=== PATIENT | female | born 2005 | race Caucasian/White ===

== ENCOUNTER 2025-06-05 14:53 | Emergency (ER) | payer BC, SELFPAY ==
[2025-06-05 15:05] VITALS: BP 115/73; PULSE 77; TEMP 36.6; O2SAT 99; BMI 19.8
--- OUTSIDE RECORDS SUMMARY | 2025-06-05 15:15 | XMS_ITS | Encounter Summary ---
Author Organization [facility] Address [id number] [address] [place] [address] Care Team Providers Care Group Captain Name Role Phone Unavailable Primary Care Provider Unavailabl e Encounter Details Date Type Department Care Team (Late st Contact Info) Description 06/16/2022 Orders Only [facility] [address] [place] [phone] Lexus Moreno MD [address] [place], [place] [id number] Dizziness (Primary Dx); Tachycardia; Palpitation; Ectopic atrial rhythm Social History Tobacco Use Types Packs/Day Years Used Date Smoking Tobacco: Never Smokeless Tobacco: Never Comments Unknown Sex and Gender Information Value Date Recorded Sex Assigned at Not on file Legal Sex Female 3:26 PM EDT Gender Identity Not on file Sexual Orientation Not on file COVID-19 Exposure Response Date Recorded In the last month, have you been in contact with someone who was confirmed or suspected to have Coronavirus / COVID-19? No / Unsure 05/27/2022 9:00 AM EDT documented as of this encounter Plan of Treatment Not on file documented as of this encounter Results * Event monitor (06/25/2022) Anatomical Region Laterality Modality Chest N/A Other Lexus Moreno MD [facility] Final Result documented in this encounter Visit Diagnoses Diagnosis Dizziness- Primary Dizziness and giddiness Tachycardia Unspecified tachycardia Palpitation Palpitations Ectopic atrial rhythm documented in this encounter
--- OUTSIDE RECORDS SUMMARY | 2025-06-05 15:15 | XMS_ITS | Encounter Summary ---
Author Organization [facility] Address [id number] [address] [place] [address] Care Team Providers Care Proof Plate Maker Name Role Phone Unavailable Primary Care Provider Unavailabl e Encounter Details Date Type Department Care Team (Late st Contact Info) Description 07/14/2022 Orders Only [facility] [address] [place] [phone] Lexus Moreno MD [address] [place], [place] [id number] Dizziness; Tachycardia; Palpitation; Ectopic atrial rhythm Social History Tobacco Use Types Packs/Day Years Used Date Smoking Tobacco: Never Smokeless Tobacco: Never Comments Unknown Sex and Gender Information Value Date Recorded Sex Assigned at Not on file Legal Sex Female 3:26 PM EDT Gender Identity Not on file Sexual Orientation Not on file documented as of this encounter Plan of Treatment Not on file documented as of this encounter Procedures Procedure Name Priority Date/Time Associated Diagnosis Comments EVENT MONITOR Routine 06/25/2022 Dizziness Tachycardia Palpitation Ectopic atrial rhythm documented in this encounter Results * Event monitor (06/25/2022) Anatomical Region Laterality Modality Chest N/A Other us Lexus Moreno MD [facility] Final Result documented in this encounter Visit Diagnoses Diagnosis Dizziness Dizziness and giddiness Tachycardia Unspecified tachycardia Palpitation Palpitations Ectopic atrial rhythm documented in this encounter
--- OUTSIDE RECORDS SUMMARY | 2025-06-05 15:16 | XMS_ITS | Clinical Summary ---
Author Organization [facility] Address [address] [place] [address] Care Team Providers Care Product Assurance Engineer Name Role Phone BryceMack du Primary Care Provider Allergies No known active allergies Medications norethindrone ac-eth estradio () 1.5-30 MG-MCG tablet tabletIndications :Abnormal vaginal bleeding,Menorrha placido with irregular cycle,Oral contraception initial prescription,Amen orrhea,Polycystic bilateral ovaries Take 1 tablet by mouth in the morning. 28 tablet 12 11/09/19 24 Active Additional Information Patient not taking.Reported on 05/11/2025 ARIPiprazole (Abilify) 5 MG tabletIndications :Bipolar 1 disorder, mixed (HCC) Take 1 tablet (5 mg) by mouth Daily 30 tablet 1 01/21/20 24 Active Additional Information Patient not taking.Reported on 05/11/2025 cephalexin (Keflex) 500 MG capsuleIndication s:Puncture wound of right foot, initial encounter Take 1 capsule (500 mg) by mouth in the morning and 1 capsule (500 mg) before bedtime. Do all this for 7 days. 14 capsule 05/11/20 25 025 Active Problems Problem Noted Date Diagnosed Date Abnormal uterine bleeding 10/14/2023 Amenorrhea 10/14/2023 Bipolar affective disorder, currently manic, mod erate 10/14/2023 Constipation 10/14/2023 Contracture, left ankle 10/14/2023 Contusion of right hand 10/14/2023 Crushing injury of right hand 10/14/2023 Dysautonomia 10/14/2023 Gastroesophageal reflux disease 10/14/2023 High risk sexual behavior 10/14/2023 Excessive and frequent menstruation 10/14/2023 Menorrhagia 10/14/2023 Pain in wrist 10/14/2023 Right hand pain 10/14/2023 Seasonal allergies 10/14/2023 Sore throat 10/14/2023 Vitamin D deficiency 10/14/2023 Bipolar disorder 11/26/2022 Eating disorder 11/26/2022 Marijuana smoker, continuous 11/26/2022 POTS (postural orthostatic tachycardia syndrome) 11/26/2022 Vaping nicotine dependence, non-tobacco product 11/26/2022 Encounters Date Type Department Care Team Description 05/11/2025 1:00 PM EDT Ancillary Procedure [facility] [address] [place] [phone] Puncture wound of right foot, initial encounter 05/11/2025 12:30 PM EDT Office Visit [facility] [address] [facility] [address] [place] [address] Chelsea Lentz NP Puncture wound of right foot, initial encounter (Primary Dx) 05/11/2025 Results Follow-Up [facility] [address] [facility] [address] [place] [address] Chelsea Lentz NP 05/11/2025 Travel from Last 3 Months Immunizations Immunization Administration Dates Next Due DTP 10/30/2006,2005,2005 ,2005 DTaP 06/17/2010 HPV 9-Valent 11/18/2021,08/31/2019 Hep A, ped/adol, 2 dose 01/08/2011,06/17/2010 Hep B, Adolescent or Pediatric 2005,2004,2005 HiB, unspecified 10/30/2006,2005, 5,2005 IPV 06/17/2010 Influenza, seasonal, injectable 09/25/2009,08/24 MMR 06/17/2010,10/30/2006 Meningococcal B, Omv 11/18/2021 Meningococcal MCV4P 11/18/2021,06/22/2017 Meningococcal MPSV4 06/22/2017 Polio, Unspecified 10/30/2006,2005, 005 Tdap 05/22/2025,06/22/2017 Varicella 06/17/2010,06/22/2006 Family History Medical History Relation Name Comments No Known Problems Brother Hypertension Father Diabetes Mother Hypertension Mother Thyroid nodules Mother No Known Problems Sister Relation Name Status Comments Brother 2 brothers Father Alive Mother Alive Sister 2 sisters Social History Tobacco Use Types Packs/Day Years Used Date Smoking Tobacco: Never Smokeless Tobacco: Never Tobacco Cessation:Counseling Given: Yes Alcohol Use Standard Drinks/Week Comments Never 0 (1 standard drink = 0.6 oz pur e alcohol) caffeine intake : none Comments No Sex and Gender Information Value Date Recorded Sex Assigned at Not on file Legal Sex Female 7:07 PM EDT Gender Identity Not on file Sexual Orientation Not on file Last Filed Vital Signs Vital Sign Reading Time Taken Comments Blood Pressure 102/82 05/11/2025 12:36 PM EDT Pulse 89 05/11/2025 12:36 PM EDT Temperature 36.8 C (98.3 F) 05/11/2025 12:36 PM EDT Respiratory Rate 20 05/11/2025 12:36 PM EDT Oxygen Saturation 98% 05/11/2025 12:36 PM EDT Inhaled Oxygen Concentration - - Weight 57.6 kg (127 lb) 01/21/2024 9:48 AM EDT Height 172.7 cm (5' 8 ) 01/21/2024 9:48 AM EDT Body Mass Index 19.31 01/21/2024 9:48 AM EDT Body Mass Index Percentile 21.09% 01/21/2024 9:4 8 AM EDT Growth Chart: CDC (Girls, 2- 20 Years) Plan of Treatment Health Maintenance Due Date Last Done Comments Influenza Vaccine (#1) 2025 09/25/2009, 2008 Procedures Procedure Name Priority Date/Time Associated Diagnosis Comments XR FOOT 3+ VIEWS RIGHT STAT 05/11/2025 1:02 PM EDT Puncture wound of right foot, initial encounter from Last 3 Months Results * XR foot 3+ views right (05/11/2025 1:02 PM EDT) Anatomical Region Laterality Modality Lower Extremities, Foot Right [facility] 05/11/2025 1:04 PM EDT Impressions 05/11/2025 1:05 PM EDT No radiopaque foreign body. ELECTRONICALLY SIGNED BY: Ambrose Tan MD Narrative 05/11/2025 1:05 PM EDT EXAMINATION/TECHNIQUE: XR FOOT 3+ VIEWS RIGHT HISTORY: Stepped on glass 2 days ago. Possible residual foreign body near the MTP joints. COMPARISON: None RESULT: No radiopaque foreign body. No acute fracture. No dislocation. Joint spaces maintained. Procedure Note Ambrose Tan MD - 05/11/2025 EXAMINATION/TECHNIQUE: XR FOOT 3+ VIEWS RIGHT HISTORY: Stepped on glass 2 days ago. Possible residual foreign body nearthe MTP joints. COMPARISON: None RESULT: No radiopaque foreign body. No acute fracture. No dislocation. Jointspaces maintained. IMPRESSION: No radiopaque foreign body. ELECTRONICALLY SIGNED BY: Ambrose Tan MD Chelsea Lentz PATIENT CARE SECRETARY IMG XR PROCEDURES Final Resu lt from Last 3 Months Insurance [facility] Care Teams Product Assurance Engineer Relationship Specialty Start Date End Date Mack Dominguez DO [address] [facility] [address] [place] [address] PCP - General Family Medicine 06/22/23
--- OUTSIDE RECORDS SUMMARY | 2025-06-05 15:16 | XMS_ITS | Encounter Summary ---
Author Organization [facility] Address [id number] [address] [place] [address] Care Team Providers Care Military Cook Name Role Phone Unavailable Primary Care Provider Unavailabl e Encounter Details Date Type Department Care Team (Late st Contact Info) Description 07/28/2022 Orders Only [facility] [address] [place] [phone] Ref Prov, [place] [address] Social History Tobacco Use Types Packs/Day Years [...] Procedure Name Priority Date/Time Associated Diagnosis Comments NON [facility] Routine 07/28/2022 8:14 AM EDT documented in this encounter Visit Diagnoses Not on filedocumented in this encounter
--- OUTSIDE RECORDS SUMMARY | 2025-06-05 15:16 | XMS_ITS | Encounter Summary ---
Author Organization [facility] Address [address] [place] [address] Care Team Providers Care International Project Manager Name Role Phone Mack Dominguez DO Primary Care Provider [phone] Encounter Details Date Type Department Care Team ([facility] st Contact Info) Description 05/11/2025 Results Follow-Up [facility] [address] [facility] [address] [place] [phone] Chelsea Lentz NP [address] [place] [address] Social History Tobacco Use Types Packs/Day Years Used Date Smoking Tobacco: Never Smokeless Tobacco: Never Alcohol Use Standard Drinks/Week Comments Never 0 (1 standard drink = 0.6 oz pur e alcohol) caffeine intake : none Comments No Sex and Gender Information Value Date Recorded Sex Assigned at Not on file Legal Sex Female 7:07 PM EDT Gender Identity Not on file Sexual Orientation Not on file documented as of this encounter Miscellaneous Notes * Telephone Encounter - Chelsea Lentz NP - 05/11/2025 1:42 PM EDT Please call pt and notify her that final x ray read is negative for foreign body and/or fracture. Continue treatment plan as we discussed and follow up with PCP if not improving. Thanks. RESULT: No radiopaque foreign body. No acute fracture. No dislocation. Joint spaces maintained. IMPRESSION: No radiopaque foreign body. documented in this encounter Plan of Treatment Not on file documented as of this encounter Visit Diagnoses Not on filedocumented in this encounter Care Teams International Project Manager Relationship Specialty Start Date End Date Mack Dominguez DO [address] [facility] [address] [place] [address] PCP - General Family Medicine 06/22/23 documented as of this encounter
--- OUTSIDE RECORDS SUMMARY | 2025-06-05 15:16 | XMS_ITS | Patient Health Record ---
Author Organization [facility] Address [address] [place] [address] Care Team Providers Care Newspaper Inserter Name Role Phone Torie Rust Primary Care Provider Dr. Damien Negron Unavailable [phone] Harish Ortiz Unavailable [phone] Britntee Wolff Unavailable [phone] Allergies No Known Allergies Results Component Value Reference Range Notes JOHANNE with Reflex Reviewed date:09/12/2024 10:04:54 AM Interpretation: Performing Lab: Notes/Report: Reason for Exam Multiple joint pain Reason for Exam Malar rash JOHANNE with Reflex Negative Negative Performed at: [address] [id number] Contracting Support Specialist: Jay Krishnamurthy PhD, Phone: [phone] Complete Blood Count and Dif f Reviewed date:09/12/2024 10:04:54 AM Interpretation: Performing Lab:, [facility], [address] [place] Notes/Report: Reason for Exam Malar rash Segmented Neutrophils 28 50-70 % Band Neutrophils 12 0-5 % Lymphocytes 45 18-42 % Reactive Lymphocytes 11 0-12 % Monocytes 3 2-11 % Eosinophils 1 1-3 % Basophils 1 0-2 % Poikilocytosis Slight Anisocytosis Slight Microcytosis Slight Platelet Estimate Normal Normal White Blood Count 5.8 3.8-11.6 10*3/uL Uncorrected WBC 5.8 3.8-11.6 10*3/uL Red Blood Count 4.77 3.60-5.00 Hemoglobin 14.2 11.8-15.4 g/dL Hematocrit 41.6 34.0-46.4 % Mean Corpuscular Volume 87.2 80-100 fL Mean Corpuscular Hemoglobin 29.7 24.7-34.3 pg Mean Corpuscular HGB Conc 34.1 32.0-35.0 g/dL Red Cell Distribution Width 12.9 11.9-15.3 % Platelet Count 165 150-450 10*3/uL Mean Platelet Volume 9.3 6.3-10.7 fL Platelet Morphology Normal Normal Pathologist Slide Review Reviewed date:09/12/2024 10:04:54 AM Interpretation: Performing Lab:, [facility], [place] Notes/Report: Pathologist Slide Review Ordered Path Review Rheumatoid Factor Reviewed date:09/12/2024 10:04:54 AM Interpretation: Performing Lab:, [facility], [place] Notes/Report: Reason for Exam Multiple joint pain Reason for Exam Malar rash Rheumatoid Factor 16.4 <14.0 Performed at: [facility] [employer] [id number] Contracting Support Specialist: Jay Krishnamurthy PhD, Phone: [phone] Erythrocyte Sedimentation Ra te Reviewed date:09/12/2024 10:04:54 AM Interpretation: Performing Lab: Notes/Report: Reason for Exam Malar rash Erythrocyte Sedimentation Rate 3 0-19 Thyroid Stim Hormone w/Rflx Reviewed date:09/12/2024 10:04:54 AM Interpretation: Performing Lab: Notes/Report: Reason for Exam Malar rash Reason for Exam Fever, unspecified Thyroid Stim Hormone w/Rflx 4.00 0.45-5.33 u[i U]/mL C-Reactive Protein Reviewed date:09/12/2024 10:04:54 AM Interpretation: Performing Lab: Notes/Report: Reason for Exam Malar rash Reason for Exam Fever, unspecified C-Reactive Protein 1.7 0.0-0.5 mg/dL Complete Blood Count Auto Di ff Reviewed date:09/12/2024 10:04:54 AM Interpretation: Performing Lab:, [facility], [place] Notes/Report: Reason for Exam Malar rash White Blood Count 5.8 3.8-11.6 10*3/uL Uncorrected WBC 5.8 3.8-11.6 10*3/uL Red Blood Count 4.77 3.60-5.00 Hemoglobin 14.2 11.8-15.4 g/dL Hematocrit 41.6 34.0-46.4 % Mean Corpuscular Volume 87.2 80-100 fL Mean Corpuscular Hemoglobin 29.7 24.7-34.3 pg Mean Corpuscular HGB Conc 34.1 32.0-35.0 g/dL Red Cell Distribution Width 12.9 11.9-15.3 % Platelet Count 165 150-450 10*3/uL Mean Platelet Volume 9.3 6.3-10.7 fL Monotest Reviewed date:09/21/2024 04:51:00 PM Interpretation: Performing Lab:, [facility], [address] [place] Notes/Report: Reason for Exam Abnormal CBC Monotest Positive Negative Complete Blood Count Auto Di ff Reviewed date:09/21/2024 04:51:00 PM Interpretation: Performing Lab:, [facility], [address] [place] Notes/Report: Reason for Exam Abnormal CBC White Blood Count 4.8 3.8-11.6 10*3/uL Uncorrected WBC 4.8 3.8-11.6 10*3/uL Red Blood Count 4.59 3.60-5.00 10*6/uL Hemoglobin 13.2 11.8-15.4 g/dL Hematocrit 38.7 34.0-46.4 % Mean Corpuscular Volume 84.2 80-100 fL Mean Corpuscular Hemoglobin 28.7 24.7-34.3 pg Mean Corpuscular HGB Conc 34.1 32.0-35.0 g/dL Red Cell Distribution Width 12.6 11.9-15.3 % Platelet Count 188 150-450 10*3/uL Mean Platelet Volume 8.4 6.3-10.7 fL Neutrophils % (Auto) 55.5 . % Lymphocytes % (Auto) 34.8 . % Monocytes % (Auto) 7.8 . % Eosinophils % (Auto) 1.4 . % Basophils % (Auto) 0.5 . % NRBC% 0.2 0-0.5 /100{WBC} Neutrophils # (Auto) 2.7 1.8-7.7 10*3/uL Lymphocytes # (Auto) 1.7 1.00-4.8 10*3/uL Monocytes # (Auto) 0.4 0.0-0.8 10*3/uL Eosinophils # (Auto) 0.1 0.0-0.45 10*3/uL Basophils # (Auto) 0.0 0.0-0.2 10*3/uL Complete Blood Count Auto Di ff Reviewed date:09/12/2024 10:04:54 AM Interpretation: Performing Lab:, [facility], [address] [place] Notes/Report: Reason for Exam Malar rash White Blood Count 5.8 3.8-11.6 10*3/uL Uncorrected WBC 5.8 3.8-11.6 10*3/uL Red Blood Count 4.77 3.60-5.00 Hemoglobin 14.2 11.8-15.4 g/dL Hematocrit 41.6 34.0-46.4 % Mean Corpuscular Volume 87.2 80-100 fL Mean Corpuscular Hemoglobin 29.7 24.7-34.3 pg Mean Corpuscular HGB Conc 34.1 32.0-35.0 g/dL Red Cell Distribution Width 12.9 11.9-15.3 % Platelet Count 165 150-450 10*3/uL Mean Platelet Volume 9.3 6.3-10.7 fL Comprehensive Metabolic Pane l Reviewed date:09/12/2024 10:04:54 AM Interpretation: Performing Lab:, [facility], [address] [place] Notes/Report: Reason for Exam Malar rash Reason for Exam Fever, unspecified Glucose 102 70-100 mg/dL Random Glucose Reference Range is dependent on time and content of last meal. Glucose of more than 200 mg/dL in a nonstressed, ambulatory subject supports the diagnosis of Diabetes Mellitus. ADA recommended reference range Blood Urea Nitrogen 9 7-25 mg/dL Creatinine 0.75 0.60-1.20 mg/dL Sodium 137 136-145 mmol/L Potassium 4.4 3.5-5.1 mmol/L Chloride 106 98-107 mmol/L Carbon Dioxide 23.6 21.0-31.0 mmol/L Calcium 9.5 8.6-10.3 mg/dL Total Protein 7.0 6.4-8.9 g/dL Albumin Level 4.4 3.5-5.7 g/dL Globulin 2.6 Albumin/Globulin Ratio 1.7 Bilirubin,Total 0.4 0.3-1.0 mg/dL Aspartate Amino Transferase 34 13-39 U/L Alanine Aminotransferase 20 7-52 U/L Alkaline Phosphatase 62 34-104 U/L Estimated GFR > 60.0 Anion Gap 11.8 6.0-15.0 JOHANNE with Reflex Reviewed date:09/01/2024 11:00:47 PM Interpretation:see attached Performing Lab: Notes/Report: see attached Erythrocyte Sedimentation Ra te Reviewed date:09/01/2024 04:57:48 PM Interpretation:see attached Performing Lab: Notes/Report: see attached Complete Blood Count Auto Di ff Reviewed date:09/01/2024 11:00:47 PM Interpretation:see attached Performing Lab: Notes/Report: see attached C-Reactive Protein Reviewed date:09/01/2024 04:38:15 PM Interpretation:see attached Performing Lab: Notes/Report: see attached Comprehensive Metabolic Pane l Reviewed date:09/01/2024 01:58:41 PM Interpretation:see attached Performing Lab: Notes/Report: see attached Reason For Referral Reason 09/20 referral updat e attached. Pt. scheduled 10/11/[address] Alvin Garrett *FAXED 09/14 Positive RF, multiple joint pain. Please evaluate and treat. Diagnosis 1 Rheumatoid factor po sitive (R76.8) Referral Organization [facility] Referring Provider First Name Torie Referring Provider Last Name Barrera Referring Provider Speciality Nurse Prac titioner Referred Provider Specialty Rheumatology General Notes Maxine Pereira 2023 08:17:58 AM >RECEIVED A NOTE THAT STATES CANNOT BE SEEN DUE TO HAVING [facility] MEDICAID. PATIENT DOES NOT HAVE THAT INSURANCE. SHE HAS ANTHEM., Maxine Pereira 09/14/2024 02:49:38 PM >ALFREDO Paez (Dr. Jackson) [phone] Referral Priority Routine Referral Appointment Date 10/11/2024 Medications Medication SIG (Take, Route, Frequency, Duration) Notes Start Date End Date Status Doxycycline Monohydrate 100 MG 1 capsule Orally twice a day (bid); Duration: 10 day(s) Active Ondansetron HCl 8 MG 1 tablet as needed Orally Once a day; Duration: 14 days 03/11/2022 Active Immunizations Vaccine Route Administration Date Status Comme nts HPV IM Intramuscular 11/18/2021 Administered Meningococcal (MENACTRA) IM Intramuscular 11/18/2021 Admin istered MENINGOCOCCAL B IM Intramuscular 11/18/2021 Administered Social History Sex Assigned At : Social History Observation Description Sex Assigned At Female Sexual Hx: Question Answer Notes Had sex in the last 12 months (vaginal, oral, or anal)? Yes with Men only Use protection? Yes How often? All of the time Prevention Strategies discussed: Condoms Have you ever had an STD? Yes Other? Yes AUDIT-C (Standard) Question Answer Notes Did you have a drink containing alcohol in the p ast year? No Points 0 Interpretation Negative Tobacco Control (Standard) Question Answer Notes Additional Findings: Tobacco user e-cigarette Section Notes: uses vape pen uses vape pen uses vape pen uses vape pen uses vape pen uses vape pen uses vape pen uses vape pen uses vape pen uses vape pen uses vape pen uses vape pen uses vape pen uses vape pen uses vape pen uses vape pen uses vape pen uses vape pen uses vape pen uses vape pen uses vape pen uses vape pen Problems Problem Type SNOMED Code ICD Code Onset Dates Problem Status W/U Status Risk Notes Problem Dysuria (06619994) Dysuria (R30.0) Active confi rmed Problem Seasonal allergy (663444364) Seasonal allergies (J30.2) Active confirmed Problem Gastroesophageal reflux disease (270960994) GERD (gastroesophageal reflux disease) (K21.9) Active confirmed Problem Vitamin D deficiency (25464913) Hypovitaminosis D (E55.9) Active confirmed Problem Amenorrhea (79671875) Amenorrhea (N91.2) Active confirmed Problem Sore throat (328952666) Sore throat (J02.9) Active confirmed Problem High risk sexual behavior (857337675) Unprotected sex (Z72.51) Active confirmed Problem Bipolar affective disorder, currently manic, moderate (464630021) Bipolar 1 disorder with moderate blake (F31.12) Active confirmed Problem Dysautonomia (58345947) Dysautonomia (G90.1) Active confirmed Vital Signs Heart Rate 61 /min 08/25/2024 Temperature 98.6 degrees Fahrenheit 08/25/2024 Respiratory Rate 20 /min 08/25/2024 Blood pressure diastolic 69 mm Hg 08/25/2024 Oximetry 94 % 08/25/2024 Height 68.5 in 08/25/2024 BMI Percentile 8.67 08/25/2024 Blood pressure systolic 105 mm Hg 08/25/2024 Weight 122 lbs 08/25/2024 BMI 18.28 kg/m2 08/25/2024 Encounters Encounter Location Date Provider Diagnosis [facility] [address] [address] 08/26/2024 Torie Interianojosephbuddy [facility] [address] [place] [address] 08/31/2024 Torie Interianojosephbuddy [place] [address] [place] [address] 09/01/2024 Torie Interianojosephbuddy Rheumatoid factor positive R76.8 [facility] [address] [address] 09/06/2024 Torie Interianojosephbuddy Abnormal CBC R79.89 [facility] [address] [place] [address] 09/21/2024 Torie leeGregoriabuddy [place] [address] [address] 09/01/2024 Torie leeGregoriabuddy [place] [address] [place] [address] 09/05/2024 Torie Interianojosephbuddy Nausea and vomiting, unspecified vomiting type R11.2 [facility] [address] [place] [address] 08/25/2024 Torie Rust Malar rash R21 ; Multiple joint pain M25.50 ; Dysautonomia G90.1 ; Fever, unspecified R50.9 and Unintentional weight loss R63.4 [facility] [address] [place] [address] 10/13/2024 Damien Negron Encounter for dental examination and cleaning with abnormal findings Z01.21 ; Other dental procedure status Z98.818 ; Disturbances in tooth eruption K00.6 and Dental caries on pit and fissure surface penetrating into dentin K02.52 [facility] [address] [place] [address] 01/18/2025 Brittnee Wolff Acute gingivitis, plaque induced K05.00 [facility] [address] [place] [address] 12/30/2024 Damien Negron Dental caries on pit and fissure surface penetrating into dentin K02.52 [facility] [address] [place] [address] 01/11/2025 Damien Jamil Dental caries on pit and fissure surface penetrating into dentin K02.52 Assessments Encounter Date Diagnosis (ICD Code) Assessment Notes Treatment Notes Treatment Clinical Notes Section Notes 08/25/2024 Malar rash (ICD-10 - R21) Will get labwork today, will contact patient with results. 09/01/2024 Rheumatoid factor positive (ICD-10 - R76.8) 09/06/2024 Abnormal CBC (ICD-10 - R79.89) 10/13/2024 Encounter for dental examination and cleaning with abnormal findings (ICD-10 - Z01.21) 09/05/2024 Nausea and vomiting, unspecified vomiting type (ICD-10 - R11.2) 12/30/2024 Dental caries on pit and fissure surface penetrating into dentin (ICD-10 - K02.52) 01/11/2025 Dental caries on pit and fissure surface penetrating into dentin (ICD-10 - K02.52) 01/18/2025 Acute gingivitis, plaque induced (ICD-10 - K05.00) 08/25/2024 Multiple joint pain (ICD-10 - M25.50) Will get labwork today, will contact patient with results. 08/25/2024 Dysautonomia (ICD-10 - G90.1) Will get labwork today, will contact patient with results. 10/13/2024 Other dental procedure status (ICD-10 - Z98.818) 10/13/2024 Disturbances in tooth eruption (ICD-10 - K00.6) 08/25/2024 Fever, unspecified (ICD-10 - R50.9) Will get labwork today, will contact patient with results. 08/25/2024 Unintentional weight loss (ICD-10 - R63.4) Will get labwork today, will contact patient with results. 10/13/2024 Dental caries on pit and fissure surface penetrating into dentin (ICD-10 - K02.52) 08/25/2024 Other Body Mass Index : Care Instructions material was published Plan Of Treatment Pending Test Test Name Order Date Thyroid Stim Hormone w/Rflx 08/25/2024 Rheumatoid Factor 08/25/2024 Next Appt Details Provider Name:Brittnee Wolff , 07/24/2025 09:30:00 AM, [address], [place], [address], Insurance Providers Payer Name Payer Address Payer Phone Subscriber Number Group Number Insured Name Patient Relationship to Insured Coverage Start Date Coverage End Date ANTHEM Primary [address] [place] [address] [id number] TERESA GUO Parent 4 [employer] [place] Medicaid [address] [place] [address] [id number] GLENDYVIDA Self - patient is the insured 3 [facility] [address] [place] [address] [id number] GLENDY VIDA Self - patient is the insured 3 [employer] [address] [address] [place] [address] [id number] ERICMIRATABITHA TERESA Parent 0 1 zDENTAL DQ [facility] CHP [place]-termed 22 [address] [place] [address] [id number] [place] JOSE LUIS PIKESAMI Self - patient is the insured 1 3 zDental MEDICAID CF after [facility] CHP-terme d 22 [address] [place] [address] [id number] VIDA PIKE Self - patient is the insured 1 3 [facility] E CHP-terme d 22 [address] [place] [address] [id number] VIDA PIKE Self - patient is the insured 1 3 zMEDICAID MERGED WITH [facility] after [facility] CHP-terme d 22 [address] [place] [address] [id number] VIDA PIKE Self - patient is the insured 1 3 ANTHEM Primary [address] [place] [address] [id number] VIDA PIKE Self - patient is the insured 1 3 zDental [employer] [place] Medicaid [address] [place] [address] [id number] VIDA PIKE Self - patient is the insured 3 4 Dental Wrap [facility] [address] [place] [address] [id number] VIDA PIKE Self - patient is the insured 3 4 DENTAL ANTHEM [address] [place] [address] [id number] VIDA PIKE Self - patient is the insured 3 Medications Administered Medication Instructions Date of Administration Dosage Notes Rocephin 500 mg 10/01/2023 500 mg Rocephin 500 mg 10/01/2023 500 mg Medical (General) History Medical History History ICD Code Depression F32.9 Esophageal reflux Disautonomia Surgical History Surgery Date(Month/Year) tonsillectomy oral surgery Hospitalization History Reason Date(Month/Year) [facility]
--- OUTSIDE RECORDS SUMMARY | 2025-06-05 15:16 | XMS_ITS | Clinical Summary ---
Author Organization [facility] Address [address] [place], [place] [id number] Care Team Providers Care Sizing Sponger Name Role Phone Torie Leal CNP Unavailable [phone] Allergies No known active allergies Medications glycopyrrolate (ROBINUL ORAL) Take by mouth. Active Lactobacillus acidophilus (PROBIOTIC ORAL) Take by mouth once daily. Active Active Problems Problem Noted Date Diagnosed Date POTS (postural orthostatic tachycardia syndrome) 11/26/2022 Eating disorder 11/26/2022 Bipolar disorder 11/26/2022 Vaping nicotine dependence, non-tobacco product 11/26/2022 Marijuana smoker, continuous 11/26/2022 Immunizations Immunization Administration Dates Next Due Haemophilus influenzae b (Hi b) vaccine, unspecified formulation 10/30/2006,2005,2005,09/11 diphtheria tetanus pertussis (DTP) vaccine 10/30/2006,2005,2005,09/11 diphtheria tetanus pertussis (DTaP) vaccine, pediatric (INFANRIX) 06/17/2010 hepatitis A (HepA) vaccine, 2-dose series, ped/adol (HAVRIX-PEDS, VAQTA-PEDS) 01/08/2011,06/17/2010 hepatitis B (HepB) vaccine, 3-dose series, age 0 yr - 19 yr (ENGERIX B-PEDS, RECOMBIVAX HB-PEDS) 2005,2005,2005 human papillomavirus (HPV9) vaccine, 9 valent (GARDASIL 9) 11/18/2021,08/31/2019 influenza (IIV3) vaccine, tr ivalent (AFLURIA, FLULAVAL, FLUVIRIN, FLUZONE) 09/25/2009,08/24/2009 measles mumps rubella (MMR) vaccine (M-M-R II, PRIORIX) 06/17/2010,10/30/2006 meningococcal (MPSV4) vaccin e, quadrivalent (MENOMUNE) 06/22/2017 meningococcal (MenACWY-D) va ccine, quadrivalent (MENACTRA) 11/18/2021 meningococcal B (MenB-4C) va ccine (BEXSERO) 11/18/2021 poliovirus (IPV) vaccine, in activated (IPOL) 06/17/2010 poliovirus vaccine, unspecif ied formulation 10/30/2006,2005,2005 tetanus diphtheria pertussis (Tdap) vaccine, age 7+ yr (ADACEL, BOOSTRIX) 06/22/2017 varicella (JERSEY) vaccine (VARIVAX) 06/17/2010, Social History Tobacco Use Types Packs/Day Years Used Date Smoking Tobacco: Every Day Smokeless Tobacco: Never Tobacco Cessation:Ready to Q uit: Not Asked Comments:[facility] Area Deprivation Index Answer Date Lew rded National Score (1-100), lower number is lower ri sk 64 04/30/2023 State Score (1-10), lower number is lower risk 4 04/30/2023 Data from: https://www.neighborhoodatlas.medicine.[facility].edu/. Last address used for calculation [address] [place] [address] 04/30/2023 Comments No Sex and Gender Information Value Date Recorded Sex Assigned at Not on file Legal Sex Female 10:19 AM EST Gender Identity Not on file Sexual Orientation Not on file Last Filed Vital Signs Vital Sign Reading Time Taken Comments Blood Pressure 102/57 10/11/2024 2:45 PM EST Pulse 88 10/11/2024 2:45 PM EST Temperature 37 C (98.6 F) 10/11/2024 2:45 PM EST Respiratory Rate - - Oxygen Saturation 99% 01/07/2023 10:50 AM EST Inhaled Oxygen Concentration - - Weight 57.2 kg (126 lb 1.7 oz) 10/11/2024 2:45 P M EST Height 172.7 cm (5' 8 ) 10/11/2024 2:45 PM EST Body Mass Index 19.17 10/11/2024 2:45 PM EST Plan of Treatment Health Maintenance Due Date Last Done Comments Peds To Adult Transition Ini tial Discussion 2017 Peds To Adult Transition Brenna ual Assessment 2019 Meningococcal B Vaccine (2 o f 2 - Bexsero SCDM 2-dose series) 05/18/2022 11/18/2021 Anxiety Screening 2023 Chlamydia Screening (18-24) 2023 Depression Screening 2023 GC (Gonorrhea) Screening (18-24) 2023 HIV Screening 2023 Hepatitis C Screening 2023 Pneumococcal Vaccine (1 of 2 - PCV) 2024 Influenza Vaccine (#1) 2025 09/25/2009, 2008 DTaP,Tdap,Td Vaccine (7 - Td or Tdap) 06/22/2027 06/22/2017, 06/17/2010, 10/30/2006, Additional history exists Hepatitis B Vaccine Completed 2005, 2005, 2005 HPV Vaccine Completed 11/18/2021, 08/31/2019 Meningococcal Conjugate Vaccine Completed , 06/22/2017 Insurance hovelstay PPO Care Teams Sizing Sponger Relationship Specialty Start Date End Date Torie Leal, MILITARY LOGISTICS SPECIALIST [address] [place] [address] Referring Family Medicine 09/20/24
--- OUTSIDE RECORDS SUMMARY | 2025-06-05 15:16 | XMS_ITS | Encounter Summary ---
Author Organization [facility] Address [address] [place] [address] Care Team Providers Care Retail Warehouse Associate Name Role Phone Mack Dominguez DO Primary Care Provider [phone] Encounter Details Date Type Department Care Team ([facility] st Contact Info) Description 07/15/2023 Abstract [facility] [address] [facility] [address] [place] [address] Aline Mancia DO [address] [id number] Social History Tobacco Use Types Packs/Day Years [...] on filedocumented in this encounter Care Teams Retail Warehouse Associate Relationship Specialty Start Date End Date Mack Dominguez DO [address] [facility] [address] [place] [address] PCP - General Family Medicine 06/22/23 documented as of this encounter
--- OUTSIDE RECORDS SUMMARY | 2025-06-05 15:16 | XMS_ITS | Clinical Summary ---
Author Organization [facility] Address [id number] [address] [place] [address] Care Team Providers Care Phd Internship Name Role Phone Unavailable Primary Care Provider Unavailabl e Allergies No known active allergies Medications azithromycin (ZITHROMAX) 500 mg tablet take 2 tablets by mouth ONCE 03/12/2022 Active ondansetron (ZOFRAN) 8 mg tablet Take 1 tablet by mouth as needed. 03/11/2022 Active Active Problems No known active problems Family History Medical History Relation Name Comments Hypertension Father High Cholesterol Maternal Grandmother Hypertension Maternal Grandmother Thyroid Issues Maternal Grandmother Hypertension Mother Thyroid Issues Mother Thyroid Issues Paternal Grandfather High Cholesterol Paternal Grandmother Thyroid Issues Paternal Grandmother Arrhythmia Neg Hx Asthma Neg Hx Clotting disorder Neg Hx Diabetes Neg Hx Heart attack Neg Hx Heart defect Neg Hx Seizures Neg Hx Stroke Neg Hx Sudden Neg Hx Relation Name Status Comments Father Maternal Grandmother Mother Paternal Grandfather Paternal Grandmother Social History Tobacco Use Types Packs/Day Years Used Date Smoking Tobacco: Never Smokeless Tobacco: Never Comments Unknown Sex and Gender Information Value Date Recorded Sex Assigned at Not on file Legal Sex Female 3:26 PM EDT Gender Identity Not on file Sexual Orientation Not on file Last Filed Vital Signs Vital Sign Reading Time Taken Comments Blood Pressure 126/77 05/27/2022 9:21 AM EDT Pulse 90 05/27/2022 9:21 AM EDT Temperature - - Respiratory Rate - - Oxygen Saturation - - Inhaled Oxygen Concentration - - Weight 60.1 kg (132 lb 9.6 oz) 05/27/2022 9:18 A M EDT Height 174.6 cm (5' 8.74 ) 05/27/2022 9:18 AM ED T Body Mass Index 19.73 05/27/2022 9:18 AM EDT Body Mass Index Percentile 34.31% 05/27/2022 9:1 8 AM EDT Growth Chart: [facility] (Girls, 2- 20 Years) Plan of Treatment Health Maintenance Due Date Last Done Comments Depression Screening 2017 Tobacco Screening 2017 Adult BMI Screening 2023 05/27/2022 Influenza Vaccine 07/03/2025 09/25/2009, 08/24/2009 DTaP,Tdap and Td Vaccines (7 - Td or Tdap) 06/22/2027 06/22/2017, 06/17/2010, 10/30/2006, Additional history exists Medical Devices Not on file Insurance [facility] MEDICAID [facility] MEDICAID
--- NOTE | 2025-06-05 15:18 | US_ITS ---
The [address] [address] Patient Name: VIDA PIKE MRN: [id number] date: 2005 Sex: F Assigned Patient Location: ED.MAIN Current Patient Location: ED.MAIN Accession/Order Number: [id number] Exam Date: 06/05/2025 16:38 Report Date: 06/05/2025 16:41 At the request of: MARCUS GUERIN MD Procedure: US pelvis transvaginal EXAMINATION TYPE: US pelvis transvaginal Grayscale, color scale Doppler, vascular duplex analysis of the bilateral ovaries DATE OF EXAM ORDERED: 06/05/2025 3:45 PM HISTORY: right pelvic pain ( PCOD hx ), complex cyst versus mass seen on prior CT COMPARISON: NONE TECHNIQUE: Realtime Transvaginal and Transabdominal imaging was performed. Transvaginal imaging was utilized to better evaluate the ovaries and the endometrial stripe. Grayscale, color scale Doppler, vascular duplex analysis of the bilateral ovaries was performed to assess blood flow. FINDINGS: The uterus measures 9.1 x 4.4 x 5.0 cm. The uterus is normal in echogenicity. Endometrium: Normal thickness and appearance. The endometrium measures 9 mm in thickness Ovaries: There is a complex appearing cystic structure with internal debris in the right ovary measuring 5.0 x 3.6 x 4.8 cm in greatest dimension. This may represent a large hemorrhagic cyst. Right Ovary measurements: 7.0 x 4.4 x 5.9 cm Left Ovary measurements: 5.6 x 2.6 x 2.4 cm No abnormal adnexal mass is seen. No free fluid in the pelvic cul-de-sac. Vascular duplex analysis of the bilateral ovaries demonstrates normal blood flow without evidence of ovarian ischemia. US/US pelvis transvaginal IMPRESSION: There is a complex appearing cystic structure with internal debris in the right ovary measuring 5.0 x 3.6 x 4.8 cm in greatest dimension. This may represent a large hemorrhagic cyst. Short-term interval ultrasound follow-up is recommended to assess resolution. No evidence of ovarian ischemia. Impression dictated by: Julio Garrison M.D. 06/05/2025 4:41 PM Dictation Location: [place] [address] Electronically authenticated by: [id number] Y Date: 06/05/2025 16:41
--- NOTE | 2025-06-05 15:30 | ED_ITS ---
HPI - Abdominal Pain General Chief Complaint: Abdominal Pain Stated Complaint: LOWER RIGHT SIDED ABDOMINAL PAIN Time Seen by Provider: 06/05/25 14:56 History of Present Illness HPI narrative: Patient is 19 years old female presented to the ER with a right lower quadrant pain that she noticed yesterday evening, that the pain is continuous dull ache like that can increase sometimes with certain movement, she did had some mild nausea and she denies any fever chills or any other concern No changes in bowel movement the patient had no similar presentation before she mentioned that she have a history of polycystic ovarian disease and she thinks maybe this is the reason for her pain Last menstruation was at the beginning of April and that she had it for 7 days and she mentioned that she usually does not have a regular menstruation Patient denies any burning with urination or any vaginal discharge or any risk for infections Related Data Previous Rx's ?Medication ?Instructions ?Recorded ibuprofen 600 mg tablet 600 mg PO Q8H PRN pain #20 t abs 06/05/25 Allergies Allergy/AdvReac Type Severity Reaction Status Date / Time No Known Drug Allergies Allergy Verified 06/05/25 15:05 Review of Systems ROS Status of ROS 10 or more systems reviewed and unremark able except as noted in history and below [facility] Medical History (Updated 06/05/25 @ 17:31 by Liz Hannah MD) Cystic disease of ovaries ?N83.209 - Unspecified ovarian cyst, unspecified side (ICD-10) Social History Little interest or pleasure in doing things: not at all Feeling down, depressed, or hopeless: not at all Exam Narrative Exam Narrative: Nurses notes and vital signs reviewed and patient is not hypoxic. General: Well-appearing and in no apparent distress. Skin: Warm, dry, no pallor noted. No rash. Head: Normocephalic, atraumatic. Neck: Supple, non-tender. Cardiovascular: Regular Rate and Rhythm without murmur, gallop or rub. Respiratory: No accessory muscle use or respiratory distress. Lungs are clear to auscultation, no wheezing, rales or rhonchi Chest Wall: no tenderness Back: No midline thoracic or lumbar vertebral tenderness. No CVA tenderness Musculoskeletal: normal ROM, no calf or popliteal tenderness, no lower extremity edema/swelling GI: Abdomen is soft, non-distended. Right lower quadrant tenderness noted with positive McBurney. Neurological: A&O x4. No cranial nerve dysfunction observed. Constitutional Vital Signs, click to edit/add: Last Vital Signs Temp 98 F 06/05/25 15:05 Pulse 72 06/05/25 16:12 Resp 16 06/05/25 16:12 BP 121/73 06/05/25 16:12 Pulse Ox 100 06/05/25 16:12 O2 Del Method Room Air 06/05/25 15:05 Course Vital Signs Vital signs: Vital Signs Temperature 98 F 06/05/25 15:05 Pulse Rate 77 06/05/25 15:05 Respiratory Rate 16 06/05/25 15:05 Blood Pressure 115/73 06/05/25 15:05 Pulse Oximetry 99 06/05/25 15:05 Oxygen Delivery Method Room Air 06/05/25 15:05 Temperature 98 F 06/05/25 15:05 Pulse Rate 72 06/05/25 16:12 Respiratory Rate 16 06/05/25 16:12 Blood Pressure 121/73 06/05/25 16:12 Pulse Oximetry 100 06/05/25 16:12 Oxygen Delivery Method Room Air 06/05/25 15:05 MDM - Abdominal Pain MDM Narrative Medical decision making narrative: CBC and chemistry showed no acute pathology and negative as well CT abdomen pelvis showed that the patient have a cyst on the right side that is 6 cm and it was confirmed with the ultrasound I did speak with the [facility] doctor on-call Dr. Carmen and she recommended the patient to follow-up with Dr. Kenney outpatient within few days The patient was instructed about the importance of coming back in case of any consistent pain in the right side and I explained to her the importance of monitoring symptoms specially that I explained to her the importance of the pain getting worse to come back to the ER because that would put her at risk of ovarian torsion Patient was discharged home with high-dose ibuprofen The patient is to follow up with primary care physician in next 2-3 days or to return to the emergency department should any of the signs or symptoms worsen or new symptoms develop. The patient agrees with the following Diagnosis and Treatment plan and the patient will be discharged home. Lab Data Labs: Lab Results 06/05/25 06/05/25 Range/Units 15:00 15:27 WBC 8.0 (4.0-11.0) 10^3/uL RBC 4.61 (4.20-5.40) 10^6/uL Hgb 13.7 (12.0-16.0) g/dL Hct 39.4 (36.0-48.0) % MCV 85.5 (81.0-99.0) fL MCH 29.7 (26.7-34.0) pg MCHC 34.8 (29.9-35.2) g/dL RDW 12.8 (11.0-15.0) % Plt Count 262 (150-450) 10^3/uL MPV 9.7 (9.5-13.5) fL Neut % (Auto) 64.9 (43.0-75.0) % Lymph % (Auto) 26.2 (20.5-60.0) % [place] % (Auto) 6.8 (1.7-12.0) % Eos % (Auto) 1.0 (0.9-7.0) % Baso % (Auto) 0.8 (0.2-2.0) % Neut # (Auto) 5.2 (1.4-6.5) 10^3/uL Lymph # (Auto) 2.1 (1.2-3.8) 10^3/uL [place] # (Auto) 0.5 (0.3-0.8) 10^3/uL Eos # (Auto) 0.1 (0.0-0.7) 10^3/uL Baso # (Auto) 0.1 (0.0-0.1) 10^3/uL Abs Immat Gran (auto) 0.02 (0.00-0.03) 10^3/uL Imm/Tot Granulo (auto) 0.3 (0.0-0.5) % Sodium 138 (136-145) mmol/L Potassium 3.8 (3.5-5.1) mmol/L Chloride 105 (98-107) mmol/L Carbon Dioxide 26.8 (21.0-32.0) mmol/L Anion Gap 10.0 BUN 14.0 (6.4-19.3) mg/dL Creatinine 0.92 (0.55-1.02) mg/dL Est GFR ( Amer) >60 (>=60 mL/min/1.73m^2) Est GFR (Non-Af Amer) >60 (>=60 mL/min/1.73m^2) BUN/Creatinine Ratio 15.2 Glucose 92 (74-106) mg/dL Calcium 8.9 (8.5-10.1) mg/dL Total Bilirubin 0.6 (0.2-1.0) mg/dL AST 11 L (15-37) U/L ALT 17 (14-59) U/L Alkaline Phosphatase 63 (46-116) U/L Total Protein 6.9 (6.4-8.2) g/dL Albumin 3.8 (3.4-5.0) g/dL Globulin 3.1 g/dL Albumin/Globulin Ratio 1.2 Serum HCG, Qual Negative (NEGATIVE) Urine Color Lt. yellow (YELLOW) Urine Clarity Clear (CLEAR) Urine pH 8.0 (5.0-9.0) Ur Specific [place] 1.020 (1.005-1.025) Urine Protein Negative (NEG/TRACE) mg/dL Urine Glucose (UA) Negative (NEGATIVE) mg/dL Urine Ketones Negative (NEGATIVE) mg/dL Urine Occult Blood Negative (NEGATIVE) Urine Nitrite Negative (NEGATIVE) Urine Bilirubin Negative (NEGATIVE) Urine Urobilinogen 0.2 (0.2-1.0) EU/dL Ur Leukocyte Esterase Negative (NEGATIVE) Discharge Plan Discharge Chief Complaint: Abdominal Pain Clinical Impression: Ovarian cyst Patient Disposition: Home, Self-Care Time of Disposition Decision: 17:31 Condition: Good Prescriptions / Home Meds: New ibuprofen 600 mg tablet 600 mg PO Q8H PRN (Reason: pain) Qty: 20 0RF Print Language: Swiss Instructions: Ovarian Cyst (ED) Referrals: Steve Kenney DO [Physician, INVESTMENT RECOVERY TECHNICIAN] - As soon as possible Physician,Non-Staff, MD [Primary Care Provider] - 1 week
[2025-06-05 15:37] LABS: Hematocrit 39.4 % (36.0-48.0); Hemoglobin 13.7 g/dL (12.0-16.0); Immature Granulocytes Abs Auto 0.02 10^3/uL (0.00-0.03); Immature Granulocytes Pct Auto 0.3 % (0.0-0.5); Lymphocytes Absolute Auto 2.1 10^3/uL (1.2-3.8); Mean Corpuscular HGB Conc 34.8 g/dL (29.9-35.2); Mean Corpuscular Hemoglobin 29.7 pg (26.7-34.0); Mean Corpuscular Volume 85.5 fL (81.0-99.0); Platelet Count 262 10^3/uL (150-450); Red Blood Count 4.61 10^6/uL (4.20-5.40); White Blood Count 8.0 10^3/uL (4.0-11.0)
[2025-06-05 15:38] LABS: Glucose Urine UA NEGATIVE (NEGATIVE)
--- NOTE | 2025-06-05 15:55 | CT_ITS ---
[address] [address] Patient Name: VIDA PIKE MRN: [id number] date: 2005 Sex: F Assigned Patient Location: ED.MAIN Current Patient Location: ED.MAIN Accession/Order Number: [id number] Exam Date: 06/05/2025 16:30 Report Date: 06/05/2025 16:38 At the request of: MARCUS GUERIN MD Procedure: CT abdomen pelvis wo con CT abdomen pelvis wo con 06/05/2025 4:16 PM SIGNS AND SYMPTOMS: Right lower quadrant pain TECHNIQUE: Multidetector ct axial images of the abdomen and pelvis were obtained without IV contrast. Multiplanar reformats were performed and reviewed to further define anatomy and possible pathology. CT was performed with one or more of the following dose reduction techniques: Automated exposure control, adjustment of the mA and/or kV according to patient size, or use of iterative reconstruction technique. COMPARISON: None. FINDINGS: Lower Chest: Within normal limits. ABDOMEN: Liver: Within normal limits. Bile Ducts: Normal caliber. Gallbladder: No calcified gallstones. Normal caliber wall. Pancreas: Within normal limits. Spleen: Within normal limits. Adrenals: Within normal limits. Kidneys: Within normal limits. Pelvis: Reproductive Organs: There is a complex appearing masslike structure in the right adnexa measuring 6.5 cm in greatest axial dimension. This may represent a complex/hemorrhagic cyst. Follow-up with pelvic ultrasound is recommended. Ureters: Within normal limits. Bladder: Within normal limits. Bowel: Normal caliber. There is a normal appendix in the right lower quadrant. Mesenteric Lymph Nodes: No enlarged mesenteric lymph nodes. Peritoneum: No ascites or free air, no fluid collection. Vessels: within normal limits Retroperitoneum: Within normal limits. Abdominal Wall: Within normal limits. Bones: Within normal limits. CT/CT abdomen pelvis wo con IMPRESSION: There is a complex appearing masslike structure in the right adnexa measuring 6.5 cm in greatest axial dimension. This may represent a complex/hemorrhagic cyst. Follow-up with pelvic ultrasound is recommended. No renal, ureteral, or bladder stones. There is a normal appendix in the right lower quadrant. Impression dictated by: Julio Garrison M.D. 06/05/2025 4:38 PM Dictation Location: [place] [address] Electronically authenticated by: [id number] Y Date: 06/05/2025 16:38
[2025-06-05 16:00] LABS: Alanine Aminotransferase 17 U/L (14-59); Albumin Globulin Ratio 1.2; Albumin Level 3.8 g/dL (3.4-5.0); Alkaline Phosphatase 63 U/L (46-116); Anion Gap 10.0; Aspartate Amino Transferase 11 U/L (15-37); Blood Urea Nitrogen 14.0 mg/dL (6.4-19.3); Calcium 8.9 mg/dL (8.5-10.1); Carbon Dioxide 26.8 mmol/L (21.0-32.0); Chloride 105 mmol/L (98-107); Estimated GFR (African America >60 (>=60 mL/min/1.73m^2); Estimated GFR (Non-African Ame >60 (>=60 mL/min/1.73m^2); Globulin 3.1 g/dL; Glucose 92 mg/dL (74-106); Potassium 3.8 mmol/L (3.5-5.1); Sodium 138 mmol/L (136-145); Total Protein 6.9 g/dL (6.4-8.2)
[2025-06-05 16:12] VITALS: BP 121/73; PULSE 72; O2SAT 100
[2025-06-05] MEDS: KETOROLAC TROMETHAMINE 30 MG/ML VIAL 15 MG IVP (16:22)
== END 2025-06-05 17:48 | disposition home or self-care (01) ==
PROVIDERS: Emergency Provider Emergency Medicine
DX: E28.2 Polycystic ovarian syndrome (principal)
CPT/HCPCS: 36415; 74176; 76830; 80053; 81003; 84703; 85025; 96374; 99285; J1885